=== PATIENT | male | born 1995 | race Caucasian/White ===

== ENCOUNTER → 2016-12-12 | Outpatient (CLI) | payer BC, OTHER ==
[2016-12-12 11:14] LABS: Blood Urea Nitrogen 12 mg/dL (9-20); Cholesterol 153 mg/dL (<200); Glucose 86 mg/dL (74-99); HDL Cholesterol 31 mg/dL (40-60); Lithium 0.3 mmol/L; Non-African American GFR(MDRD) >60 (>60 ml/min/1.73 sqM); Triglycerides 346 mg/dL (<150)
[2016-12-12 12:21] LABS: Hemoglobin A1C 5.3 % (4.2-6.1)
== END | disposition home or self-care (01) ==
LOC: LABWHC1 06:36
PROVIDERS: ATTEND Psychiatry & Neurology Psychiatry
DX: Z51.81 Encounter for therapeutic drug level monitoring (principal); Z79.899 Other long term (current) drug therapy
CPT/HCPCS: 36415; 80061; 80178; 82565; 82947; 83036; 84439; 84443; 84520

== ENCOUNTER 2018-06-07 14:53 | Emergency (ER) | payer BC, OTHER ==
[2018-06-07 15:19] VITALS: RESP 18; TEMP 98.7
[2018-06-07] MEDS ORDERED: DIPH,PERTUS(ACELL)TETVAC-LF 0.5 ML VIAL IM ONE (16:30)
[2018-06-07] MEDS ORDERED: AMOXIC-POT CLAV 875MG STARTER 2 EACH TABLET PO STA (16:31)
--- NOTE | 2018-06-07 17:56 | ED ---
General Adult HPI - General Chief complaint: Psychiatric Symptoms Stated complaint: Mental health Time Seen by Provider: 06/07/18 15:48 Source: family Mode of arrival: ambulatory Limitations: no limitations - History of Present Illness Initial comments: 22-year-old male past history of bipolar with psychosis, schizophrenia drug abuse presenting today for chief complaint of dog bites and drug rehab. 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 He is accompanied by his stepmom who states that he has experienced psychosis in the past which they feel is from the marijuana. Denied current psychosis. He states that every time he smokes marijuana she is out of it for 2-3 days. He states he would like help and presents emergency department. Patient also mentioned that he split up his 2 pit bulls fighting yesterday evening and has multiple bites to the upper extremity bilaterally up to the elbows. Patient is unsure of his last tetanus vaccination. Patient denies any suicidal or homicidal ideations. She denies any auditory or visual hallucinations. Remainder ROS negative, patient denies any recent fever, chills, shortness of breath, chest pain, back pain, abdominal pain, nausea or vomiting, numbness or tingling, dysuria or hematuria, constipation or diarrhea, headaches or visual changes, or any other complaints. Pt states he is hoping to get some help today for his addiction. Pt has been kicked out of [facility] as well as penitentiary homes. And was recently jailed for 30 days for drug use. - Related Data Home Medications Medication Instructions Recorded Confirmed [place] Carbonate 1,200 mg PO HS 06/07/18 06/07/18 Paliperidone Palmitate [Invega 78 mg IM Q28D 06/07/18 06/07/18 Sustenna] Paliperidone [Invega] 3 mg PO DAILY 06/07/18 06/07/18 Venlafaxine HCl ER [Effexor Xr] 150 mg PO DAILY 06/07/18 06/07/18 Previous Rx's Medication Instructions Recorded Amoxicillin/Potassium Clav 1 tab PO Q12HR 7 Days #14 tab 06/07/18 [Augmentin 875-125 Tablet] Allergies Allergy/AdvReac Type Severity Reaction Status Date / Time No Known Allergies Allergy Verified 06/07/18 17:01 Review of Systems ROS Statement: Those systems with pertinent positive or pertinent negative responses have been documented in the HPI. ROS Other: All systems not noted in ROS Statement are negative. Past Medical History Past Medical History: No Reported History History of Any Multi-Drug Resistant Organisms: None Reported Past Surgical History: No Surgical Hx Reported Past Psychological History: Anxiety, Bipolar, Depression, Panic Disorder, Schizophrenia Smoking Status: Current every day smoker Past Alcohol Use History: Occasional Past Drug Use History: Marijuana - Past Family History Father Family Medical History: No Reported History Additional Family Medical History / Comment(s): Dad is 36 years of age and healthy. Mother Additional Family Medical History / Comment(s): Mother is 27 years old ( according to the patient) and is healthy. Brother(s) Additional Family Medical History / Comment(s): Patient has 2 brothers and 3 sisters "maybe more" that are apparently healthy. Patient has no children of his own. General Exam - General Exam Comments Initial Comments: General: The patient is awake and alert, in no distress, and does not appear acutely ill. Eye: +3 mm pupils are equal, round and reactive to light, extra-ocular movements are intact. No nystagmus. There is normal conjunctiva bilaterally. No signs of icterus. Ears, nose, mouth and throat: There are moist mucous membranes and no oral lesions. Neck: The neck is supple, there is no tenderness or JVD. Cardiovascular: There is a regular rate and rhythm. No murmur, rub or gallop is appreciated. Respiratory: Lungs are clear to auscultation, respirations are non-labored, breath sounds are equal. No wheezes, stridor, rales, or rhonchi. Gastrointestinal: Soft, non-distended, non-tender abdomen without masses or organomegaly noted. There is no rebound or guarding present. No CVA tenderness. Bowel sounds are unremarkable. Musculoskeletal: Normal ROM, no tenderness. Strength 5/5. Sensation intact. Capillary refill <2 seconds. +2 mm pulses equal bilaterally 2+. Neurological: A&O x 3. CN II-XII intact, There are no obvious motor or sensory deficits. Coordination appears grossly intact. Speech is normal. Skin: Skin is warm and dry. Multiple superifical dog bites, no of the hands/ forarms and at elbow. No large lacerations. No active bleeding no surrounding erythema or warmth to palpation. Psychiatric: Cooperative, appropriate mood & affect, normal judgment. Limitations: no limitations Course Vital Signs 06/07/18 06/07/18 15:13 19:09 Temperature 98.7 F Pulse Rate 104 H 80 Respiratory 18 18 Rate Blood Pressure 133/80 130/78 O2 Sat by Pulse 98 98 Oximetry Medical Decision Making - Medical Decision Making Wounds cleansed. No evidence of surrounding soft tissue cellulitis. Patient be started on Augmentin. Tetanus updated. Patient denies suicidal or homicidal ideations. Patient does not appear acutely psychotic. Patient is alert and oriented 3, answering questions appropriately. Patient cleared medically for psych evaluation. EPS put plan in place for [facility] He was given resources for rehabilitation. Recommended d/c. Pt will return parameters for infection of the dog bites, I discussed the associated risks including infection. Patient verbalized understanding. Case discussed with Dr. Kulkarni. pt discharged in stable condition. - Lab Data Lab Results 06/07/18 Range/Units 18:30 Urine Color Yellow Urine Appearance Cloudy (Clear) Urine pH 5.5 (5.0-8.0) Ur Specific [place] 1.027 (1.001-1.035) Urine Protein 1+ H (Negative) Urine Glucose (UA) Negative (Negative) Urine Ketones 1+ H (Negative) Urine Blood Negative (Negative) Urine Nitrite Negative (Negative) Urine Bilirubin Negative (Negative) Urine Urobilinogen 4.0 (<2.0) mg/dL Ur Leukocyte Esterase Negative (Negative) Urine WBC 11 H (0-5) /hpf Urine Mucus Many H (None) /hpf Urine Opiates Screen Not Detected (NotDetected) Ur Oxycodone Screen Not Detected (NotDetected) Urine Methadone Screen Not Detected (NotDetected) Ur Propoxyphene Screen Not Detected (NotDetected) Ur Barbiturates Screen Not Detected (NotDetected) U Tricyclic Antidepress Not Detected (NotDetected) Ur Phencyclidine Scrn Not Detected (NotDetected) Ur Amphetamines Screen Not Detected (NotDetected) U Methamphetamines Scrn Not Detected (NotDetected) U Benzodiazepines Scrn Not Detected (NotDetected) Urine Cocaine Screen Not Detected (NotDetected) U Marijuana (THC) Screen Detected H (NotDetected) Disposition Clinical Impression: Marijuana abuse, Dog bite Disposition: HOME SELF-CARE Condition: Good Instructions: Animal Bite (ED) Additional Instructions: Please use medication as discussed. Please follow-up with family doctor in the next 2 days. Please follow plans as established with EPS. Please return to emergency room if the symptoms increase or worsen or for any other concerns. Prescriptions: Amoxicillin/Potassium Clav [Augmentin 875-125 Tablet] 1 tab PO Q12HR 7 Days #14 tab Is patient prescribed a controlled substance at d/c from ED?: No Referrals: Anne Marie Whittaker DO [Primary Care Provider] - 1-2 days Time of Disposition: 19:36
[2018-06-07 19:10] VITALS: BP 130/78; PULSE 80
[2018-06-07 19:17] LABS: Appearance,Urine Cloudy (Clear); Bilirubin,Urine Negative (Negative); Blood,Urine Negative (Negative); Color,Urine Yellow; Glucose,Urine (UA) Negative (Negative); Ketones,Urine 1+ (Negative); Leukocyte Esterase,Urine Negative (Negative); Mucus,Urine Many /hpf; Nitrite,Urine Negative (Negative); PH, Urine 5.5 (5.0-8.0); Protein,Urine 1+ (Negative); Specific Gravity,Urine 1.027 (1.001-1.035)
[2018-06-07 19:25] LABS: Amphetamine Screen,Urine Not Detected (NotDetected); Barbiturate Screen,Urine Not Detected (NotDetected); Benzodiazepines Screen,Urine Not Detected (NotDetected); Cocaine Screen,Urine Not Detected (NotDetected); Methadone Screen, Urine Not Detected (NotDetected); Opiate Screen,Urine Not Detected (NotDetected); Oxycodone Screen, Urine Not Detected (NotDetected); Phencyclidine Screen,Urine Not Detected (NotDetected); Tricyclic Antidepressant,Urine Not Detected (NotDetected); Urn Cannabinoid Scrn Detected (NotDetected)
== END 2018-06-07 19:42 | disposition home or self-care (01) ==
LOC: EC 14:53
DX: S50.371A Other superficial bite of right elbow, initial encounter (principal); S50.372A Other superficial bite of left elbow, initial encounter; F12.20 Cannabis dependence, uncomplicated; F31.9 Bipolar disorder, unspecified; F41.9 Anxiety disorder, unspecified; F20.9 Schizophrenia, unspecified; F17.200 Nicotine dependence, unspecified, uncomplicated; Z23 Encounter for immunization; Z79.899 Other long term (current) drug therapy; W54.0XXA Bitten by dog, initial encounter
CPT/HCPCS: 80306; 81001; 82075; 87086; 90471; 90715; 99284

== ENCOUNTER → 2018-06-13 | Outpatient (CLI) | payer BC | END | disposition home or self-care (01) | LOC: EC 08:24 → LABMAIN 10:49 | PROVIDERS: ATTEND Psychiatry & Neurology Psychiatry | DX: Z51.81 Encounter for therapeutic drug level monitoring (principal); Z79.899 Other long term (current) drug therapy | CPT/HCPCS: 36415; 80178 ==